=== PATIENT | male | born 1990 | race Caucasian/White ===

== ENCOUNTER → 2018-08-13 | Outpatient (REF) | payer BC ==
[2018-08-13 15:40] LABS: PLATELET COUNT, AUTOMATED 209 K/uL (150-450)
== END ==
LOC: ZZSTITCHES 15:19
PROVIDERS: ATTEND Physician Assistant
DX: R30.0 Dysuria (principal); R31.9 Hematuria, unspecified
CPT/HCPCS: 81001; 82040; 82247; 82310; 82374; 82435; 82565; 82947; 84075; 84132; 84155; 84295; 84450; 84460; 84520; 85025; 87088

== ENCOUNTER → 2018-09-08 | Outpatient (CLI) | payer BC ==
--- NOTE | 2018-09-08 16:53 | RADIOLOGY IMAGING REPORT ---
FACILITY: [facility] PATIENT NAME: Jaswant Ortiz : 1990 MR: [id number] V: [id number] EXAM DATE: ORDERING PHYSICIAN: TYSHAWN REID TECHNOLOGIST: Location: [facility] [place] Patient: Jaswant Ortiz : 1990 Visit/Account:[id number] Date of Sevice: 09/08/2018 KIDNEYS HISTORY: Hematuria and flank pain COMPARISON: None. FINDINGS: Kidneys: Right kidney- 2.0 x 5.7 x 7.0 cm with normal parenchymal thickness and echogenicity. No ultrasound e vident renal mass lesion or stone. Left kidney- 10.0 x 5.5 x 6.5 cm with normal parenchymal thickness and echogenicity. No ultrasound e vident renal mass lesion or stone. Uniform and symmetric blood flow in each kidney by Doppler ultrasound. Hydronephrosis: None. Bladder: Morphologically unremarkable. Bilateral ureteric jets visualized. There is a small post vo id residual of 30 mL. Abdominal aorta and IVC: Patent by Doppler ultrasound. IMPRESSION: Small post void residual, otherwise normal renal ultrasound Report Dictated By: Allan Barber at 09/08/2018 4:48 PM Report E-Signed By: Allan Barber at 09/08/2018 4:49 PM WSN:DEV
== END ==
LOC: US 01:32
PROVIDERS: ATTEND Urology
DX: R31.0 Gross hematuria (principal); R30.0 Dysuria
CPT/HCPCS: 76705